=== PATIENT | female | born 1950 | race Caucasian/White ===

== ENCOUNTER 2016-07-27 03:41 | Observation (INO) | payer BC, OTHER ==
[2016-07-27] MEDS ORDERED: KETOROLAC TROMETHAMINE 30 MG/1 ML VIAL ONE (04:00)
[2016-07-27] MEDS ORDERED: ONDANSETRON 4 MG/2 ML VIAL ONE ×3 (04:01→14:30)
[2016-07-27] MEDS ORDERED: KETOROLAC TROMETHAMINE 30 MG/1 ML VIAL IVPUSH ONE (04:04)
[2016-07-27] MEDS ORDERED: SODIUM CHLORIDE 1,000 ML IV ONE (04:04)
[2016-07-27] MEDS ORDERED: ONDANSETRON 4 MG/2 ML VIAL IVPB ONE (04:04)
[2016-07-27] MEDS ORDERED: morphine CARPU-JECT 10 MG/1 ML DISP.SYRIN ONE (04:05)
--- NOTE | 2016-07-27 04:07 | PDOC ---
[id number] 4d RT FLANK PAIN Time Seen by Provider: 07/27/16 04:03 History Source: Patient Exam Limitations: No Limitations - History of Present Illness Initial Comments: 07/27/16 04:06 This is an 65-year-old female who comes in complaining of acute onset of right lower abdominal pain radiating to her groin. Patient has history of similar pain in the past and said it was a kidney stone. Patient has multiple vomited multiple times and has had 1 episode of diarrhea. She denies any fevers or chills. Patient denies seeing any blood in her urine. Patient is otherwise healthy. PAST MEDICAL HISTORY: no significant history PAST SURGICAL HISTORY: no significant history FAMILY HISTORY: no pertinant history SOCIAL HISTORY: Pt lives with family and is employed. MEDICATIONS: reviewed ALLERGIES: As per nursing notes Review of Systems General: No fevers or chills, no weakness, no weight loss HEENT: No change in vision. No sore throat,. No ear pain CardioVascular: No chest pain or shortness of breath Respiratory:No cough, or wheezing. Gastrointestinal: + abdominal pain, + nausea, + vomitting, + diarrhea no constipation, No rectal bleeding Genitourinary: No dysuria, hematuria, or frequency Musculoskeletal: No joint or muscle pain or swelling Neurologic: No headache, vertigo, dizziness or loss of consciousness Psychiatric: nor depression Skin: No rashes or easy bruising Endocrine: no increased thirst or abnormal weight change Allergic: no skin or latex allergy All other systems reviewed and normal Exam: General: Well-nourished well-developed individual, in moderate distress HEENT: Throat: Normal, tonsils normal, no erythema or exudate Neck: Supple, no meningeal signs, no lymphadenopathy Eyes::Pupils equal reactive and round, extraocular motion intact Chest: Nontender to palpation Cardiac: S1-S2 normal, regular rate and rhythm, no murmurs rubs or gallops Respiratory: Lungs clear to auscultation bilateral Abdomen: Soft, nondistended, normal bowel sounds, + tender to palpation Right lower quadrant Back: There is no CVA tenderness. Extremities: Warm, dry, no cyanosis, clubbing, or edema Skin: No rashes Neuro: Alert and oriented x3, nonfocal exam, grossly intact, normal gait Psych: Normal mood and affect Care of this patient was transferred to Dr. Corvini at 7 AM. Case discussed in detail with oncoming Emergency Physician including history, physical exam and ancillary studies. Oncoming Emergency Physician has assumed care for the patient and will complete the evaluation and treatment. Patient is aware of the plan. Pt is clinically unchanged and stable. Past History - Past Medical History Allergies/Adverse Reactions: Allergies Allergy/AdvReac Type Severity Reaction Status Date / Time No Known Allergies Allergy Verified 01/18/16 16:08 Home Medications: Ambulatory Orders Acetaminophen [Tylenol .Regular Strength -] 650 mg PO Q4H PRN #0 tablet Kidney Stones: Yes - Psycho/Social/Smoking Cessation Hx Anxiety: No Suicidal Ideation: No Smoking History: Current every day smoker Have you smoked in the past 12 months: Yes Number of Cigarettes Smoked Daily: 10 Information on smoking cessation initiated: Yes 'Breaking Loose' booklet given: 01/18/16 Hx Alcohol Use: No Drug/Substance Use Hx: No Substance Use Type: None *Physical Exam - Vital Signs Last Vital Signs Temp Pulse Resp BP Pulse Ox 98.3 F 89 18 141/96 96 07/27/16 03:51 07/27/16 03:51 07/27/16 03:51 07/27/16 03:51 07/27/16 03:51 ED Treatment Course - LABORATORY CBC & Chemistry Diagram: 07/28/16 06:00 07/28/16 06:00 *DC/Admit/Observation/Transfer Diagnosis at time of Disposition: Appendicitis Qualifiers: Appendicitis type: acute appendicitis - Discharge Dispostion Disposition: HOME Condition at time of disposition: Stable
[2016-07-27] MEDS ORDERED: morphine CARPU-JECT 2 MG/1 ML DISP.SYRIN IVPUSH ONE (04:19)
[2016-07-27 05:02] LABS: BASOPHIL 0.2 % (0-2.0); EOSINOPHIL 1.5 % (0-4.5); MCHC 32.6 g/dl (32.0-36.0); MEAN CELL VOLUME 95.1 fl (80-96); MEAN PLT VOLUME 9.4 fl (7.5-11.1); NEUTROPHILS 75.5 % (42.8-82.8); PLATELET COUNT 189 K/MM3 (134-434); RDW 14.3 % (11.6-15.6); WHITE BLOOD COUNT 15.9 K/mm3 (4.0-10.0)
[2016-07-27 05:03] LABS: URINE APPEARANCE CLOUDY; URINE BILIRUBIN NEGATIVE (NEGATIVE); URINE COLOR LTYELLOW; URINE GLUCOSE (UA) NEGATIVE (NEGATIVE); URINE KETONE NEGATIVE (NEGATIVE); URINE NITRITE NEGATIVE (NEGATIVE); URINE PROTEIN NEGATIVE (NEGATIVE); URINE UROBILINOGEN NEGATIVE E.U./dl (0.2-1.0)
[2016-07-27 05:04] LABS: URINE BLOOD 1+ (NEGATIVE); URINE LEUK ESTERASE TRACE (NEGATIVE)
[2016-07-27 05:20] LABS: URINE BACTERIA RARE /hpf (NONE SEEN); URINE MUCUS RARE; URINE RBC 4 /hpf (0-3)
[2016-07-27 05:26] LABS: ALBUMIN 3.5 g/dl (3.4-5.0); ALK PHOS 99 U/L (45-117); ANION GAP 13 (8-16); BILIRUBIN,TOTAL 0.2 mg/dL (0.2-1.0); CALCIUM 8.7 mg/dL (8.5-10.1); CO2 24 mmol/L (21-32); COCKROFT - GAULT 94.2395; CREATININE 0.7 mg/dL (0.55-1.02); GLUCOSE,RANDOM 107 mg/dL (74-106); SGOT/AST 13 U/L (15-37); SGPT/ALT 17 U/L (12-78)
[2016-07-27] MEDS ORDERED: CEFTRIAXONE 1 GM in DEXTROSE 5%-WATER - 50 ML IVPB ONE (08:57)
--- NOTE | 2016-07-27 08:59 | PDOC ---
*Physical Exam - Vital Signs Last Vital Signs Temp Pulse Resp BP Pulse Ox 98.3 F 89 18 141/96 96 07/27/16 03:51 07/27/16 03:51 07/27/16 03:51 07/27/16 03:51 07/27/16 03:51 - Physical Exam Comments: 07/27/16 07:02 Sign-out received from outgoing Emergency Physician Pt interviewed and examined She has right lower quadrant tenderness on deep palpation There is no rebound or guarding The abdomen is soft Ancillary studies reviewed Repeat CT pending 07/27/16 08:59 I received a call from radiology The preliminary reading is acute appendicitis, without evidence of abscess or perforation Will administer ceftriaxone and Flagyl Will obtain EKG, blood culture, type and cross, coags Will admit to medicine with surgery consult I have discussed the case with Dr. Bowen who well see the patient in consultation Clinical impression: Appendicitis Case discussed in detail with admitting provider including history, physical exam and ancillary studies. Admitting physician has assumed care for the patient, will follow all pending diagnostics and will complete the evaluation and treatment. 07/27/16 09:06 ED Treatment Course - LABORATORY CBC & Chemistry Diagram: 07/27/16 04:00 07/27/16 04:00 - ADDITIONAL ORDERS Additional order review: Laboratory Results 07/27/16 07/27/16 04:00 04:00 Sodium 145 Potassium 3.5 Chloride 108 H Carbon Dioxide 24 Anion Gap 13 BUN 13 Creatinine 0.7 Creat Clearance w eGFR > 60 Random Glucose 107 H Calcium 8.7 Total Bilirubin 0.2 AST 13 L ALT 17 Alkaline Phosphatase 99 Total Protein 6.0 L Albumin 3.5 Urine Color Ltyellow Urine Appearance Cloudy Urine pH 6.0 Urine Protein Negative Urine Glucose (UA) Negative Urine Ketones Negative Urine Blood 1+ H Urine Nitrite Negative Urine Bilirubin Negative Urine Urobilinogen Negative Ur Leukocyte Esterase Trace H Urine RBC 4 Urine WBC None Ur Epithelial Cells Rare Urine Bacteria Rare Urine Mucus Rare 07/27/16 04:00 RBC 4.55 MCV 95.1 MCHC 32.6 RDW 14.3 MPV 9.4 Neutrophils % 75.5 Lymphocytes % 20.1 Monocytes % 2.7 L Eosinophils % 1.5 Basophils % 0.2 - Medications Given in the ED: ED Medications Discontinued Medications Generic Name Dose Route Start Last Admin Trade Name Freq PRN Reason Stop Dose Admin Sodium Chloride 1,000 mls @ 1,000 mls/hr 07/27/16 04:04 07/27/16 04:08 Normal Saline - IV 07/27/16 05:03 1,000 mls/hr .Q1H ONE Administration Ketorolac Tromethamine 30 mg 07/27/16 04:04 07/27/16 04:08 Toradol Injection - IVPUSH 07/27/16 04:05 30 mg ONCE ONE Administration Morphine Sulfate 2 mg 07/27/16 04:19 07/27/16 04:10 Morphine Injection - IVPUSH 07/27/16 04:20 2 mg NOW ONE Administration Ondansetron HCl 8 mg 07/27/16 04:04 07/27/16 04:08 Zofran Injection IVPB 07/27/16 04:05 8 mg ONCE ONE Administration *DC/Admit/Observation/Transfer Diagnosis at time of Disposition: Appendicitis - Discharge Dispostion Condition at time of disposition: Stable Admit: Yes
[2016-07-27] MEDS ORDERED: cefTRIAXone SODIUM 1 GM VIAL ONE (09:01)
[2016-07-27] MEDS ORDERED: METRONIDAZOLE 500 MG PREMIXED 100 ML IVPB ONE (09:02)
--- NOTE | 2016-07-27 10:01 | HP ---
CHIEF COMPLAINT: RLQ pain PCP: Gene HISTORY OF PRESENT ILLNESS: 65yF with a past medical history of Graves disease presented with RLQ pain associated with nausea and vomiting-multiple episodes-and one episode of LBM. Pt underwent CT scan without contrast which was suspicious for acute appendicities, recommend repeat with contrast. Repeat CT c/w acute appendicitis. Pt with no acute complaints on exam. ER course was notable for: (1) WBC 15.9 (2) CT c/w acute appendicitis (3) received CTX and flagyl Recent Travel: pt denies PAST MEDICAL HISTORY: Graves disease s/p medical tx PAST SURGICAL HISTORY: right foot surgery Social History: Smokin/2 ppd Alcohol: 2-3 drinks (glasses of wine) Drugs: pt denies Family History: mother age 52, suicide, brain tumor father age 62, [place], h/o ETOH, DM 1 brother age 40, accidental 1 brother with bipolar d/o 1 brother unknown Allergies No Known Allergies Allergy (Verified 01/18/16 16:08) HOME MEDICATIONS: 3 Medication Instructions Recorded NK [No Known Home Medication] 01/18/16 REVIEW OF SYSTEMS CONSTITUTIONAL: Absent: fever, chills, diaphoresis, generalized weakness, malaise, loss of appetite, weight change HEENT: Absent: rhinorrhea, nasal congestion, throat pain, throat swelling, difficulty swallowing, mouth swelling, ear pain, eye pain, visual changes CARDIOVASCULAR: Absent: chest pain, syncope, palpitations, irregular heart rate, lightheadedness , peripheral edema RESPIRATORY: Absent: cough, shortness of breath, dyspnea with exertion, orthopnea, wheezing, stridor, hemoptysis GASTROINTESTINAL: Present: abdominal pain, nausea, vomiting, diarrhea Absent: abdominal distension, constipation, melena, hematochezia GENITOURINARY: Absent: dysuria, frequency, urgency, hesitancy, hematuria, flank pain, genital pain MUSCULOSKELETAL: Absent: myalgia, arthralgia, joint swelling, back pain, neck pain SKIN: Absent: rash, itching, pallor HEMATOLOGIC/IMMUNOLOGIC: Absent: easy bleeding, easy bruising, lymphadenopathy, frequent infections ENDOCRINE: Absent: unexplained weight gain, unexplained weight loss, heat intolerance, cold intolerance NEUROLOGIC: Absent: headache, focal weakness or paresthesias, dizziness, unsteady gait, seizure, mental status changes, bladder or bowel incontinence PSYCHIATRIC: Absent: anxiety, depression, suicidal or homicidal ideation, hallucinations. PHYSICAL EXAMINATION Vital Signs - 24 hr 3 07/27/16 03:51 Temperature 98.3 F Pulse Rate 89 Respiratory 18 Rate Blood Pressure 141/96 O2 Sat by Pulse 96 Oximetry (%) GENERAL: Awake, alert, and fully oriented, in no acute distress. HEAD: Normal with no signs of trauma. EYES: Pupils equal, round and reactive to light, extraocular movements intact, sclera anicteric, conjunctiva clear. No lid lag. EARS, NOSE, THROAT: Ears normal, nares patent, oropharynx clear without exudates. Moist mucous membranes. NECK: Normal range of motion, supple without lymphadenopathy, JVD, or masses. LUNGS: Breath sounds equal, clear to auscultation bilaterally. No wheezes, and no crackles. No accessory muscle use. HEART: Regular rate and rhythm, normal S1 and S2 without murmur, rub or gallop. ABDOMEN: Soft, nontender, not distended, normoactive bowel sounds, no guarding, no rebound, no masses. No hepatomegaly or splenomegaly. MUSCULOSKELETAL: Normal range of motion at all joints. No bony deformities or tenderness. No CVA tenderness. UPPER EXTREMITIES: 2+ pulses, warm, well-perfused. No cyanosis. No clubbing. No peripheral edema. LOWER EXTREMITIES: 2+ pulses, warm, well-perfused. No calf tenderness. No peripheral edema. NEUROLOGICAL: Cranial nerves II-XII intact. Normal speech. Normal gait. PSYCHIATRIC: Cooperative. Good eye contact. Appropriate mood and affect. SKIN: Warm, dry, normal turgor, no rashes or lesions noted, normal capillary refill. Laboratory Results - last 24 hr 3 07/27/16 07/27/16 07/27/16 04:00 04:00 04:00 WBC 15.9 H RBC 4.55 Hgb 14.1 Hct 43.2 MCV 95.1 MCHC 32.6 RDW 14.3 Plt Count 189 MPV 9.4 Neutrophils % 75.5 Lymphocytes % 20.1 Monocytes % 2.7 L Eosinophils % 1.5 Basophils % 0.2 Sodium 145 Potassium 3.5 Chloride 108 H Carbon Dioxide 24 Anion Gap 13 BUN 13 Creatinine 0.7 Creat Clearance w eGFR > 60 Random Glucose 107 H Calcium 8.7 Total Bilirubin 0.2 AST 13 L ALT 17 Alkaline Phosphatase 99 Total Protein 6.0 L Albumin 3.5 Urine Color Ltyellow Urine Appearance Cloudy Urine pH 6.0 Urine Protein Negative Urine Glucose (UA) Negative Urine Ketones Negative Urine Blood 1+ H Urine Nitrite Negative Urine Bilirubin Negative Urine Urobilinogen Negative Ur Leukocyte Esterase Trace H Urine RBC 4 Urine WBC None Ur Epithelial Cells Rare Urine Bacteria Rare Urine Mucus Rare Imaging: CT abdomen and pelvis without contrast INDICATION: Right flank pain DATE OF SERVICE: 2016-07-27 04:27:56.0 COMPARISON : none FINDINGS: Evaluation limited without contrast. Lung bases are clear. The visualized cardiac chambers are normal size and configuration. Normal unenhanced liver, gallbladder, pancreas, spleen, adrenal glands and kidneys. The stomach and small bowel are normal. There may be mild scattered pericolic edema and a mild colitis is questioned. No bowel obstruction, abscess or free air. There is no aortic aneurysm. There is no significant retroperitoneal lymphadenopathy. There is no appendiceal dilation may be trace peritendinous inflammation which could represent early appendicitis. No abscess or free air. The uterus and adnexal structures are normal. Urinary bladder is unremarkable. There is no pelvic free fluid. No discrete pelvic lymphadenopathy is identified. IMPRESSION: Questionable early appendicitis and/or colitis. Suggest repeat exam , possibly with intravenous and oral or rectal contrast, for further evaluation , possibly after a few hours to evaluate for an evolving inflammatory process. THIS DOCUMENT HAS BEEN ELECTRONICALLY SIGNED Jimbo Farooq MD 07/27/2016 05: 10 WARD Cadet. Please call Imaging Outbound Sales Executive [phone]) with questions. ECG SR with APC, rate 93, QTC 460, nonspecific ST abnormality: T wave flattening ASSESSMENT/PLAN: 65yF with PMH Graves disease presented with RLQ pain. She is being admitted for acute appendicitis. Acute appendicitis - Dr. Bowen (surgery) has been consulted and will be here at 2pm to perform surgery - cont ceftriaxone and flagyl - NPO - NS @ 100cc/hr DVT PPX - going to OR, defer post op unless expected LOS > 48h FEN - NS @ 100cc/hr - repeat BMP in am - NPO Dispo: Pt currently requires inpatient management of her emergent condition. Visit type - Emergency Visit Emergency Visit: Yes Care time: The patient presented to the Emergency Department on the above date and was hospitalized for further evaluation of their emergent condition. - New Patient This patient is new to me today: Yes Date on this admission: 07/27/16 - Critical Care Critical Care patient: No
[2016-07-27] MEDS ORDERED: SODIUM CHLORIDE 1,000 ML IV SCH (10:15)
[2016-07-27 10:20] LABS: PROTHROMBIN TIME (PATIENT) 10.7 SEC (10.2-13.0)
[2016-07-27 10:21] LABS: ACTIVATED PTT 24.9 SECONDS (24.0-38.9); INR 0.95 (0.82-1.09)
[2016-07-27] MEDS ORDERED: BUPIVACAINE HCL/PF 2.5 MG/ML - 30 ML VIAL IJ ONE (13:35)
[2016-07-27 13:38] VITALS: BMI 25.4
[2016-07-27] MEDS ORDERED: SUCCINYLCHOLINE CHLORIDE 200 MG/10 ML VIAL ONE (13:53)
[2016-07-27] MEDS ORDERED: ROCURONIUM BROMIDE 50 MG/5 ML VIAL ONE (13:53)
[2016-07-27] MEDS ORDERED: PROPOFOL 20 ML ONE ×2 (13:53)
[2016-07-27] MEDS ORDERED: MIDAZOLAM HCL 2 MG/2 ML SINGLE DOSE VIAL ONE (13:53)
[2016-07-27] MEDS ORDERED: NEOSTIGMINE METHYLSULFATE 0.5 MG/ML - 10 ML MDV ONE (13:53)
--- NOTE | 2016-07-27 14:16 | CONSULT ---
- Consultation REQUESTING PROVIDER: Dr. Bowen CONSULT REQUEST: We have been asked to surgically evaluate this patient for ( specify). PCP:Tran Ching NP HISTORY OF PRESENT ILLNESS:The patient is a 65 yo female who presents for abdominal pain which awoke her earlier this am. Her pain has been constant, sharp in the lower abd and was associated with emesis. Last bm approximately two days ago. No painful urination, no vaginal discharge or bleeding. PMHx: graves disease, right sciatica, kidney stone with liothripsy PSHx: left foot surgery for elevated bone, left eye surgery for disease from graves Social HX: smokes 1/2 ppd since age 22 Home Medications Medication Instructions Recorded NK [No Known Home Medication] 01/18/16 Allergies Allergy/AdvReac Type Severity Reaction Status Date / Time No Known Allergies Allergy Verified 01/18/16 16:08 REVIEW OF SYSTEMS: CONSTITUTIONAL: Absent: fever, chills CARDIOVASCULAR: Absent: chest pain, palpitations, irregular heart rate, lightheadedness, RESPIRATORY: Absent: cough, shortness of breath, dyspnea with exertion GASTROINTESTINAL: Present: abdominal pain, emesis: Colons[facility] 5 years ago which was negative Absent: h/o GI bleed, chrons GENITOURINARY: Absent: dysuria, hematuria MUSCULOSKELETAL: Absent: myalgia, arthralgia, back pain, neck pain HEMATOLOGIC/IMMUNOLOGIC: Absent: easy bleeding, easy bruising, NEUROLOGIC: Absent: headache, seizure PSYCHIATRIC: Absent: anxiety, depression, suicidal or homicidal ideation, hallucinations. PHYSICAL EXAM: GENERAL: Awake, alert, and fully oriented, in no acute distress. HEAD: Normal with no signs of trauma. NECK: Normal ROM, supple without lymphadenopathy, JVD, or masses. LUNGS: Clear to auscultation bilat anteriorly. No wheezes, and no crackles. No accessory muscle use. HEART: Regular rate and rhythm. No murmurs ABDOMEN: Soft, not distended, RLQ tenderness with palpation. No rebound. MUSCULOSKELETAL: Normal ROM at all joints. No bony deformities or tenderness. UPPER EXTREMITIES: 2+ pulses, warm, well-perfused. No cyanosis. Cap refill <2 seconds. No peripheral edema. LOWER EXTREMITIES: 2+ pulses, warm, well-perfused. No calf tenderness. No peripheral edema. NEUROLOGICAL: Normal speech, gait not observed. Natural Resources Technician strength equal b/l, 5/5 dorsi/plantar flexion PSYCH: Cooperative. Good eye contact. Appropriate mood and affect. SKIN: Warm, dry, normal turgor, no rashes or lesions noted. Vital Signs Temperature 98.9 F 07/27/16 13:16 Pulse Rate 80 07/27/16 13:16 Respiratory Rate 18 07/27/16 13:16 Blood Pressure 112/56 07/27/16 13:16 O2 Sat by Pulse Oximetry (%) 95 07/27/16 13:16 Lab Results WBC 15.9 K/mm3 (4.0-10.0) H 07/27/16 04:00 RBC 4.55 M/mm3 (3.60-5.2) 07/27/16 04:00 Hgb 14.1 GM/dL (10.7-15.3) 07/27/16 04:00 Hct 43.2 % (32.4-45.2) 07/27/16 04:00 MCV 95.1 fl (80-96) 07/27/16 04:00 MCHC 32.6 g/dl (32.0-36.0) 07/27/16 04:00 RDW 14.3 % (11.6-15.6) 07/27/16 04:00 Plt Count 189 K/MM3 (134-434) 07/27/16 04:00 Sodium 145 mmol/L (136-145) 07/27/16 04:00 Potassium 3.5 mmol/L (3.5-5.1) 07/27/16 04:00 Chloride 108 mmol/L (98-107) H 07/27/16 04:00 Carbon Dioxide 24 mmol/L (21-32) 07/27/16 04:00 Anion Gap 13 (8-16) 07/27/16 04:00 BUN 13 mg/dL (7-18) 07/27/16 04:00 Creatinine 0.7 mg/dL (0.55-1.02) 07/27/16 04:00 Random Glucose 107 mg/dL (74-106) H 07/27/16 04:00 Calcium 8.7 mg/dL (8.5-10.1) 07/27/16 04:00 Blood Type O NEGATIVE 07/27/16 09:00 Antibody Screen Negative 07/27/16 09:00 INR 0.95 (0.82-1.09) L 07/27/16 09:00 CT Scan: acute appendicitis. No abscess/collection/bowel obstruction/free air Problem List - Problems (1) Appendicitis Assessment/Plan: For the OR today for lap appy possible open Pt seen and examined with Dr. Bowen, consent obtained by him today DVT ppx with SCD, early ambulation Code(s): K37 - UNSPECIFIED APPENDICITIS Qualifiers: Appendicitis type: acute appendicitis Visit type - Case Type Case Type: ED Admission - Emergency Emergency Visit: Yes ED Registration Date: 07/27/16 Care time: The patient presented to the Emergency Department on the above date and was hospitalized for further evaluation of their emergent condition. - New patient This patient is new to me today: Yes Date on this admission: 07/27/16 - Critical Care Critical Care patient: No
--- NOTE | 2016-07-27 14:17 | PN ---
Progress Note (short form) - Note Progress Note: Attending Surgeon 65 y/o o/w healthy female presented with RLQ abdominal pain; w/u reveals acute appendicitis ; for lap appendectomy possible open; r/b/t d/w the patient and informed consent obtained; for OR today. Tyron Bowen MD FACS
[2016-07-27] MEDS ORDERED: GLYCOPYRROLATE 0.2 MG/1 ML VIAL ONE (14:30)
--- NOTE | 2016-07-27 15:14 | OP ---
Operative Note - Note: Operative Date: 07/27/16 Pre-Operative Diagnosis: acute appendicitis Operation: laparoscopic appendectomy Findings: acute appendicitis Post-Operative Diagnosis: Same as Pre-op Surgeon: Tyron Bowen After School Program Teacher: Denise Hurst Anesthesia: General Specimens Removed: appendix Estimated Blood Loss (mls): 10 Drains & Tubes with Location: none
[2016-07-27] MEDS ORDERED: ACETAMINOPHEN 325 MG TABLET (FP) PO PRN (15:24)
--- NOTE | 2016-07-27 15:36 | SURG ---
Surgery Vice President Of Sales Note Vice President Of Sales: Denise Hurst PA-C Date of Service: 07/27/16 Diagnosis: acute appendicitis Procedure: laparoscopic appendectomy I was present for the entirety of the operative procedure. For further detail, please refer to operative report. Visit type - Case Type Case Type: ED Admission - Emergency Emergency Visit: Yes ED Registration Date: 07/27/16 Care time: The patient presented to the Emergency Department on the above date and was hospitalized for further evaluation of their emergent condition. - New patient This patient is new to me today: Yes Date on this admission: 07/27/16 - Critical Care Critical Care patient: No
[2016-07-27] MEDS ORDERED: KETOROLAC TROMETHAMINE 30 MG/1 ML VIAL IVPUSH PRN (15:41)
[2016-07-27] MEDS ORDERED: ACETAMINOPHEN 1000 MG/100 ML VIAL (NON FORMULARY) IVPB ONE ×2 (15:43→15:52)
[2016-07-27] MEDS ORDERED: oxyCODONE HCL 5 MG TABLET PO PRN (15:43)
[2016-07-27] MEDS ORDERED: LACTATED RINGERS SOLUTION 1,000 ML IV SCH (15:45)
[2016-07-27] MEDS ORDERED: METRONIDAZOLE 500 MG PREMIXED 100 ML IVPB SCH (18:00)
[2016-07-27] MEDS: HEPARIN NA (PORCINE) 5,000 UNITS/ML 1ML VIAL SQ SCH (21:26)
[2016-07-27] MEDS: oxyCODONE HCL 5 MG TABLET PO PRN (21:33)
[2016-07-28] MEDS: oxyCODONE HCL 5 MG TABLET PO PRN (04:50)
[2016-07-28 08:49] LABS: BASOPHIL 0.4 % (0-2.0); EOSINOPHIL 1.3 % (0-4.5); MCH 31.9 pg (25.7-33.7); MCHC 33.7 g/dl (32.0-36.0); MEAN CELL VOLUME 94.5 fl (80-96); MEAN PLT VOLUME 9.4 fl (7.5-11.1); PLATELET COUNT 152 K/MM3 (134-434); RDW 13.6 % (11.6-15.6); WHITE BLOOD COUNT 7.9 K/mm3 (4.0-10.8)
--- NOTE | 2016-07-28 08:53 | PN ---
Progress Note (short form) - Note Progress Note: Attending Surgeon POD #1 C/o headache o/w OK; tolerated clear liquid diet VSS AF abdomen-soft/flat/port sites c/d/i and w/slight ttp; o/w negative. CBC pending IMP:doing well PLAN: advance diet; OOB ;anticipate d/c later today and office f/u week of 08/05. Tyron Bowen MD FACS
[2016-07-28] MEDS: HEPARIN NA (PORCINE) 5,000 UNITS/ML 1ML VIAL SQ SCH (09:22)
--- NOTE | 2016-07-28 09:28 | OP ---
DATE OF OPERATION: 07/27/2016 PREOPERATIVE DIAGNOSIS: Acute appendicitis. POSTOPERATIVE DIAGNOSIS: Acute appendicitis. PROCEDURE: Laparoscopic appendectomy. SURGEON: Tyron Bowen MD DIRECTOR OF GRADUATE MEDICAL EDUCATION: SALUD Moncada ANESTHESIA: General. OPERATIVE FINDINGS: There was acute appendicitis. The rest of the findings were unremarkable. PROCEDURE: The patient was placed on the operating room table in supine position. After the induction of general anesthesia and the placement of sequential compression devices on the patient's lower extremities, the abdomen was prepped with ChloraPrep and draped in sterile fashion. A timeout was taken and then pneumoperitoneum was established above the umbilicus using a Veress needle. Once 15 mmHg of pressure was obtained, a 5-mm port was placed at the umbilicus and laparoscopy carried out and the previously-noted findings were observed. An additional 12-mm suprapubic port and left lower quadrant 5-mm port were placed. The appendix was identified and grasped and the mesoappendix sequentially divided using the LigaSure device. Once the base was clearly identified at the confluence of the tinea, a 45-mm blue load cartridge EndoGIA was fired across the appendix. The appendix was then placed in an EndoCatch and brought out through the suprapubic port. Pneumoperitoneum was reestablished and the appendiceal stump examined without evidence of bleeding. Hemostasis was further verified and then the suprapubic and left lower quadrant ports were removed under laparoscopic guidance without evidence of bleeding from the port sites. The umbilical port site was removed and the pneumoperitoneum evacuated. The port sites were infiltrated with 0.5% Marcaine and the defect in the fascia at the suprapubic port was closed with a single [id number] 0 Vicryl suture. All port site skin incisions were closed with 4-0 Biosyn in a subcuticular continuous fashion. The wounds were dressed with Steri-Strips and Band-Aids. At this point, the patient was aroused from general anesthesia and transferred to the postanesthesia care unit in stable condition, awake and alert. ESTIMATED BLOOD LOSS: Minimal. DRAINS: None. SPECIMEN: Appendix to Pathology. I, Tyron Bowen, was physically present in the operating room from the time the patient was placed on the operating room table until she was transferred to the postanesthesia care unit in my accompaniment. MD BRENNON [id number]
[2016-07-28 09:57] VITALS: BP 163/63; PULSE 78; TEMP 98.1
[2016-07-28] MEDS ORDERED: CEFTRIAXONE 1 GM in DEXTROSE 5%-WATER - 50 ML IVPB SCH (10:00)
[2016-07-28 10:12] LABS: ANION GAP 10 (8-16); CALCIUM 7.9 mg/dl (8.4-10.2); CO2 24 mmol/L (22-28); CREATININE 0.8 mg/dl (0.6-1.3); GLUCOSE,RANDOM 93 mg/dl (74-106); MAGNESIUM 1.7 mg/dL (1.8-2.4); PHOSPHOROUS 3.3 mg/dl (2.5-4.6)
[2016-07-28 10:13] LABS: COCKROFT - GAULT NT
[2016-07-28] MEDS ORDERED: MAGNESIUM SULF 50% (8.12 MEQ/2 ML-1 GM VIAL) IVPB ONE (12:00)
--- NOTE | 2016-07-28 12:41 | DS ---
Physical Exam: SUBJECTIVE: Patient seen and examined Reports feeling better,mild abdominal discomfort,denies N/V//D, fever, chills , cp, sob or palpitation. OBJECTIVE: Diet regular diet tolerated,remains asymptomatic. Vital Signs Period Temp Pulse Resp BP Sys/Horton Pulse Ox Last 24 Hr 97.8 F-98.9 F 55-87 18-18 94-163/53-69 94-99 PHYSICAL EXAM GENERAL: The patient is awake, alert, and fully oriented, in no acute distress. HEAD: Normal with no signs of trauma. EYES: PERRL, extraocular movements intact, sclera anicteric, conjunctiva clear. ENT: Ears normal, nares patent, oropharynx clear without exudates, moist mucous membranes. NECK: Trachea midline, full range of motion, supple. LUNGS: Breath sounds equal, clear to auscultation bilaterally, no wheezes, no crackles, no accessory muscle use. HEART: Regular rate and rhythm, S1, S2 without murmur, rub or gallop. ABDOMEN: Soft, nontender,dsg intact, nondistended, normoactive bowel sounds, no guarding, no rebound, no hepatosplenomegaly, no masses. EXTREMITIES: 2+ pulses, warm, well-perfused, no edema. NEUROLOGICAL: Cranial nerves II through XII grossly intact. Normal speech, gait not observed. PSYCH: Normal mood, normal affect. SKIN: Warm, dry, normal turgor, no rashes or lesions noted. LABS Laboratory Results - last 24 hr 07/28/16 07/28/16 06:00 06:00 WBC 7.9 RBC 3.97 Hgb 12.6 Hct 37.5 MCV 94.5 MCHC 33.7 RDW 13.6 Plt Count 152 MPV 9.4 Neutrophils % 70.0 Lymphocytes % 23.8 Monocytes % 4.5 Eosinophils % 1.3 Basophils % 0.4 Sodium 134 L Potassium 3.8 Chloride 100 Carbon Dioxide 24 Anion Gap 10 BUN 8 Creatinine 0.8 Random Glucose 93 Calcium 7.9 L Phosphorus 3.3 Magnesium 1.7 L HOSPITAL COURSE: Date of Admission:07/27/16 Date of Discharge: 07/28/16 ECG SR with APC, rate 93, QTC 460, nonspecific ST abnormality: T wave flattening ASSESSMENT/PLAN: This is a 65yF with PMH Graves disease, smoker, who presented with RLQ pain. CT abdomen ruled in for acute appendicitis. Pt was evaluated by surgery Dr. Bowen, underwent laproscopic appendectomy, procedure tolerated well.Pt remains afebrile with no leukocytosis. Diet tolerated well. Dr. Bowen cleared for discharge with outpatient followup. For smoking : Smoking cessation counselling done. Minutes to complete discharge: 40 Discharge Summary Reason For Visit: APPENDICITIS Current Active Problems Appendicitis (Acute) Condition: Stable - Instructions Diet, Activity, Other Instructions: Dr. Bowen Discharge Instructions Dear JESUS PASCAL, Post Operative Instructions Physical activity Resume your normal everyday activity as tolerated no heavy lifting or exercise until seen by your surgeon. You may walk unlimited amounts of and climb stairs. You may resume driving the car when you feel safe and comfortable behind the wheel. Wound care If you have a bandage, leave it on, and keep dry for 48 - 72 hours. After that time discard the outer bandage. If there are tapes on the skin under the outer bandage, leave them in place. They will peel off in the next 7 to 10 days. Do Not peel them off. You may shower 2 days after surgery. If there are tapes present on the skin, they can get wet. Diet There are no dietary restrictions. Eat healthy, high-fiber foods. Drink 6 to 8 glasses of liquid each day. This will assist in keeping your bowels are regular. Pain management You may take Tylenol or acetaminophen or Ibuprofen (for example, Motrin, Advil etc.) Any pain prescription medication ordered should be taken as prescribed for moderate to severe pain. Call Dr. Bowen for any of the following: Severe pain not relieved by medication Fever of 101 or higher Excessive bleeding or drainage on dressing Inability to urinate Call the office at [phone] for a post operative appointment in 7 - 10 days. Referrals: Tyron Bowen MD [Staff Physician] - 1 Week Disposition: HOME - Home Medications Comprehensive Discharge Medication List: Ambulatory Orders Acetaminophen [Tylenol .Regular Strength -] 650 mg PO Q4H PRN #0 tablet This patient is new to me today: Yes Date on this admission: 07/28/16 Emergency Visit: Yes ED Registration Date: 07/27/16 Care time: The patient presented to the Emergency Department on the above date and was hospitalized for further evaluation of their emergent condition. Critical Care patient: No - Discharge Referral Referred to [facility] No
--- NOTE | 2016-07-29 08:55 | EKG ---
Test Reason : Blood Pressure : / mmHG Vent. Rate : 093 BPM Atrial Rate : 093 BPM P-R Int : 170 ms QRS Dur : 094 ms QT Int : 370 ms P-R-T Axes : 068 055 093 degrees QTc Int : 460 ms SINUS RHYTHM WITH PREMATURE ATRIAL COMPLEXES NONSPECIFIC T WAVE ABNORMALITY NO PREVIOUS ECGS AVAILABLE Confirmed by BRADY BROWNE, ALISTAIR ([id number]) on 07/29/2016 8:54:36 AM Referred By: THELMA MEDINA Confirmed By:ALISTAIR ABREU MD
--- NOTE | 2016-07-30 14:34 | PATH ---
Surgical Pathology Report Patient Name: JESUS PASCAL [facility]. Rec. #: [id number] /Age/Gender: 1950 (Age: 65) / F Account: [id number] Location: [facility] MED-SURG Taken: 07/27/2016 Received: 07/27/2016 Reported: 07/30/2016 Physicians: Anup Bowen MD Specimen(s) Received APPENDIX Clinical History Acute appendicitis Final Diagnosis APPENDIX, APPENDECTOMY: ACUTE APPENDICITIS AND PERIAPPENDICITIS. Electronically Signed Jimmy Parry M.D. Gross Description Received in formalin, labeled "appendix," is a 4.5 cm. in length vermiform appendix with a stapled margin of resection and moderate attached fat. The serosa is young-pink and smooth. Sectioning reveals an unremarkable lumen. The wall of the appendix averages 0.1 cm. in thickness. Tool Grinding Machine Operator sections are submitted in one cassette. /07/29/2016 [facility]07/29/2016
== END 2016-07-28 13:50 | disposition home or self-care (01) ==
LOC: FER 03:41 → FM/S 12:34 → FER 12:37 → FM/S 12:38 → INTOOBSV 12:38
PROVIDERS: ADMIT Internal Medicine; ATTEND Nurse Practitioner Family
PROC: 3E03329 Introduction of Other Anti-infective into Peripheral Vein, Percutaneous Approach (ICD-10-PCS; 2016-07-27)
PROC: 3E033GC Introduction of Other Therapeutic Substance into Peripheral Vein, Percutaneous Approach (ICD-10-PCS; 2016-07-27)
PROC: 3E0337Z Introduction of Electrolytic and Water Balance Substance into Peripheral Vein, Percutaneous Approach (ICD-10-PCS; 2016-07-27)
PROC: 3E033NZ Introduction of Analgesics, Hypnotics, Sedatives into Peripheral Vein, Percutaneous Approach (ICD-10-PCS; 2016-07-27)
PROC: 0DTJ4ZZ Resection of Appendix, Percutaneous Endoscopic Approach (ICD-10-PCS; principal; 2016-07-27 14:38)
DX: K35.80 Unspecified acute appendicitis (principal); F17.210 Nicotine dependence, cigarettes, uncomplicated; E05.00 Thyrotoxicosis with diffuse goiter without thyrotoxic crisis or storm
CPT/HCPCS: 36415; 74176-TC; 74177-TC; 80048; 80053; 81003; 81015; 83735; 84100; 85025; 85610; 85730; 86850; 86900; 86901; 87040; 88304-TC; 93005; 94760; 99285-25; G0378; J1644

== ENCOUNTER 2018-04-21 12:47 | Emergency (ER) | payer OTHER, BC ==
[2018-04-21 12:58] VITALS: BP 140/90; PULSE 64; TEMP 98.4; BMI 25.8
--- NOTE | 2018-04-21 13:34 | PDOC ---
History of Present Illness - General Chief Complaint: Pain Stated Complaint: LEFT ARM PAIN FROM IV CONTRAST Time Seen by Provider: 04/21/18 12:55 History Source: Patient Exam Limitations: No Limitations - History of Present Illness Initial Comments: 04/21/18 13:29 67 year old female c/ hx of former smoker, hx of lung nodules presents from outpatient radiology for extrasavated IV from IV contrast study. Pt was in her usual state of health. Had an IV placed. As IV contrast was going in, extrasavated in LUE. Pt felt tingling and sore senation in left arm. Incident report filed by radiology department. Pt arrived to ED for an evaluation. Past History - Past Medical History Allergies/Adverse Reactions: Allergies Allergy/AdvReac Type Severity Reaction Status Date / Time No Known Allergies Allergy Verified 04/21/18 12:50 Home Medications: Ambulatory Orders NK [No Known Home Medication] 04/21/18 COPD: No Kidney Stones: Yes Thyroid Disease: Yes (graves disease) Other medical history: LUNG NODULES - Suicide/Smoking/Psychosocial Hx Smoking History: Former smoker Have you smoked in the past 12 months: Yes Number of Cigarettes Smoked Daily: 10 Information on smoking cessation initiated: Yes 'Breaking Loose' booklet given: 01/18/16 Hx Alcohol Use: (nightly) Drug/Substance Use Hx: No Substance Use Type: None Hx Substance Use Treatment: No Review of Systems - Review of Systems Able to Perform ROS?: Yes Comments:: 04/21/18 13:34 GENERAL/CONSTITUTIONAL: No fever or chills. No weakness. HEAD, EYES, EARS, NOSE AND THROAT: No change in vision. No ear pain or discharge. No sore throat. CARDIOVASCULAR: No chest pain or shortness of breath. RESPIRATORY: No cough, wheezing, or hemoptysis. GASTROINTESTINAL: No nausea, vomiting, diarrhea or constipation. GENITOURINARY: No dysuria, frequency, or change in urination. MUSCULOSKELETAL: No joint or muscle swelling or pain. No neck or back pain. + left arm soreness and tingling. SKIN: No rash NEUROLOGIC: No headache, vertigo, loss of consciousness, or change in strength/ sensation. ENDOCRINE: No increased thirst. No abnormal weight change. HEMATOLOGIC/LYMPHATIC: No anemia, easy bleeding, or history of blood clots. ALLERGIC/IMMUNOLOGIC: No hives or skin allergy. *Physical Exam - Vital Signs Last Vital Signs Temp Pulse Resp BP Pulse Ox 98.4 F 64 18 140/90 100 04/21/18 12:47 04/21/18 12:47 04/21/18 12:47 04/21/18 12:47 04/21/18 12:47 - Physical Exam Comments: 04/21/18 13:36 GENERAL: Awake, alert, and fully oriented, in no acute distress HEAD: No signs of trauma EYES: EOMI, sclera anicteric, conjunctiva clear ENT: Auricles normal inspection, hearing grossly normal, nares patent, Moist mucosa NECK: Normal ROM, supple EXTREMITIES: Normal range of motion, no edema. LUE: 2+ radial pulse. Sensation and strength intact in the median/radian/ulnar nerve distribution. Some increase tension and fullness of the left biceps but compartments overall soft. No tenderness or coldness elicited. NEUROLOGICAL: Cranial nerves II through XII grossly intact. Normal speech, normal gait SKIN: Warm, Dry, normal turgor, no rashes or lesions noted. Moderate Sedation - Procedure Monitoring Vital Signs: Procedure Monitoring Vital Signs Temperature 98.4 F 04/21/18 12:47 Pulse Rate 64 04/21/18 12:47 Respiratory Rate 18 04/21/18 12:47 Blood Pressure 140/90 04/21/18 12:47 O2 Sat by Pulse Oximetry (%) 100 04/21/18 12:47 Medical Decision Making - Medical Decision Making 04/21/18 13:39 Vital Signs Temp Pulse Resp BP Pulse Ox 98.4 F 64 18 140/90 100 04/21/18 12:47 04/21/18 12:47 04/21/18 12:47 04/21/18 12:47 04/21/18 12:47 Impression: Extravasated IV contrast. No clinical signs of compartment syndrome. Pt has been observed with no worsening symptoms. Compressions, Heat packs and elevation. Return precautions if symptoms worsen. 04/21/18 13:47 Compartment syndrome precautions given. *DC/Admit/Observation/Transfer Diagnosis at time of Disposition: Reaction to contrast media Qualifiers: Encounter type: initial encounter Qualified Code(s): T50.8X5A - Adverse effect of diagnostic agents, initial encounter - Discharge Dispostion Disposition: HOME Condition at time of disposition: Good Decision to Admit order: No - Referrals Referrals: Erika Church MD [Primary Care Provider] - - Patient Instructions Printed Discharge Instructions: DI for Procedure with IV Contrast Additional Instructions: Please use the MATT wrap during the day for compression. You may use heat packs throughout the day. Elevate the hand as much as you can. It may take several days before your symptoms resolve. If you have excruciating, uncontrollable pain, numbness, cold extremities, this is concerning for potential compartment syndrome and you need to come to the ER immediately. - Post Discharge Activity
== END 2018-04-21 13:55 | disposition home or self-care (01) ==
LOC: FER 12:47
DX: T50.8X5A Adverse effect of diagnostic agents, initial encounter (principal); Y92.239 Unspecified place in hospital as the place of occurrence of the external cause; R91.1 Solitary pulmonary nodule; Z87.891 Personal history of nicotine dependence; E05.00 Thyrotoxicosis with diffuse goiter without thyrotoxic crisis or storm; Z87.442 Personal history of urinary calculi
CPT/HCPCS: 99283-25